=== PATIENT | female | born 1950 | race Caucasian/White ===

== ENCOUNTER 2018-12-23 07:35 | Emergency (ER) | payer OTHER ==
[~2018-12-23] VITALS: Ht 170.2 cm; Wt 78.9 kg
[2018-12-23] MEDS ORDERED: DIAZEPAM 2 MG TABLET PO ONE (08:30)
[2018-12-23] MEDS ORDERED: DIAZEPAM 5 MG TABLET ONE (08:31)
[2018-12-23 09:52] LABS: CREATININE 0.8 mg/dL (0.6-1.3)
[2018-12-23] MEDS ORDERED: CARISOPRODOL 350 MG TABLET PO ONE (11:15)
[2018-12-23] MEDS ORDERED: CARISOPRODOL 350 MG TABLET ONE (11:18)
--- NOTE | 2018-12-23 11:33 | NUR ---
Patient discharged to home in stable conditon. Written and verbal after care instructions given. Patient verbalizes understanding of instructions.pt friend here to take the pt home.
[2018-12-23 11:34] VITALS: BP 131/66
== END 2018-12-23 11:34 | disposition home or self-care (01) ==
LOC: ER 07:35
DX: M71.22 Synovial cyst of popliteal space [Baker], left knee (principal); I80.3 Phlebitis and thrombophlebitis of lower extremities, unspecified; E11.9 Type 2 diabetes mellitus without complications; Z88.0 Allergy status to penicillin; Z88.2 Allergy status to sulfonamides; Z88.5 Allergy status to narcotic agent; Z88.8 Allergy status to other drugs, medicaments and biological substances
CPT/HCPCS: 36415; A4663